=== PATIENT | male | born 1960 | race Caucasian/White ===

== ENCOUNTER 2016-09-14 06:41 | Emergency (ER) ==
[2016-09-14 07:31] LABS: MANUAL DIFF NEEDED? NO
[2016-09-14 07:33] LABS: BASO% 0.6 % (0.0-0.8); EOS# 0.21 X1000 (0.0-0.7); HEMOGLOBIN 12.2 g/dL (14.0-18.0); LYMPH# 1.45 X1000 (1.2-3.4); LYMPH% 27.5 % (20.5-51.1); MCH 35.4 PG (27-31); MCHC 35.9 g/dL (33-37); MCV 98.6 FL (81-99); MONO# 0.48 X1000 (0.11-0.59); MONO% 9.1 % (1.7-9.3); MPV 11.3 FL (7.4-10.4); NEUT% 58.8 % (42.2-75.2); PLT 132 X1000 (130-400); RBC 3.45 XMIL (4.7-6.1)
[2016-09-14 07:55] LABS: AGAP 13; ALBUMIN 3.6 g/dL (3.5-5.0); ALKALINE PHOSPHATASE 102 U/L (32-122); BUN 17 mg/dL (8-22); CHLORIDE 108 mmol/L (98-107); COSMO 290; GOT 15 U/L (10-34); GPT 19 U/L (10-44); POTASSIUM 3.6 mmol/L (3.5-5.1); SODIUM 143 mmol/L (136-145); TCO2 22 mmol/L (25-35); TOTAL BILIRUBIN 0.17 mg/dL (0.20-1.00); TOTAL PROTEIN 6.4 g/dL (6.3-8.3)
[2016-09-14] MEDS ORDERED: ZOFRAN IV ONE (08:16)
[2016-09-14] MEDS ORDERED: TORADOL IV ONE (08:16)
[2016-09-14] MEDS ORDERED: NS 1,000 ML IV ONE (08:16)
[2016-09-14 08:22] LABS: URINE SOURCE CLEAN CATCH
[2016-09-14 08:25] LABS: BILIRUBIN URINE MODERATE (NEGATIVE); BLOOD URINE TRACE (NEGATIVE); COLOR BROWN; GLUCOSE URINE NEGATIVE (NEGATIVE); LEUKOCYTES URINE NEGATIVE (NEGATIVE); NITRITE URINE POSITIVE (NEGATIVE); PH URINE 5.5; PROTEIN URINE 50 mg/dL (NEGATIVE); SP GRAVITY URINE 1.033; TURBIDITY URINE CLEAR (CLEAR); UROBILINOGEN URINE 6 mg/dL (NORMAL)
[2016-09-14 08:27] LABS: URINE MICRO REVIEW NEEDED? YES
[2016-09-14 08:29] LABS: UR EPITHELIAL CELLS <10 /HPF (<10); URINE BACTERIA NEGATIVE /HPF; URINE CULTURE NEEDED? YES; URINE RBC <10 /HPF (<10); URINE WBC <10 /HPF (<10)
[2016-09-14 08:45] LABS: URINE CASTS NONE SEEN; URINE CRYSTALS CA OXALATE PRESENT
[2016-09-14 08:46] LABS: URINE SMALL ROUND CELLS NONE SEEN
--- NOTE | 2016-09-14 09:09 | PROVIDER DOCUMENTATION ---
HPI-General Adult - General Source: patient - History of Present Illness -Gen Adult Nature of Presenting Problems: 56 y/o M presents to ED cc of kidney stone. Pt was seen in [facility] ED at 0100am this morn and dx with kidney stones and UTI. Pt was given antibiotics and pain medication this am. Pt is complaining of pain and nausea/vomiting this am. Location of Pain/Injury: reports: abdomen Pain Radiation: reports: no radiation Quality of Pain: reports: aching Onset/Duration: reports: just prior to arrival Timing: reports: still present Context/Activities at Onset: reports: light activity Modifying Factors: improves with: nothing Associated Symptoms: reports: headaches, nausea, vomiting, other (kidney stone pain). denies: chest pain, fever/chills, shortness of breath Similar Symptoms Previously?: Yes Recently seen or treated by another doctor?: Yes <Cherelle Gar - Last Filed: 09/14/16 09:04> <Juan Miguel Sevilla I - Last Filed: 09/14/16 09:17> - General Chief Complaint: General Adult Stated Complaint: PEEING BLOOD,WEAK,NAUSEA Time Seen by Provider: 09/14/16 08:10 Allergies/Adverse Reactions: Patient Allergies Allergy/AdvReac Type Severity Reaction Status Date / Time tramadol Allergy Unknown Verified 09/14/16 06:49 tramadol HCl * [From Ultram] Allergy Unknown Verified 09/14/16 06:49 Home Medications: Home Medication List Medication Instructions Recorded Confirmed Last Taken Type No Home Medications 09/14/16 09/14/16 Unknown History Review of Systems - Adult - REVIEW OF SYSTEMS - ADULT Constitutional: denies: chills, fever Cardiovascular: denies: chest pain, palpitations Respiratory: denies: cough, shortness of breath Gastrointestinal: reports: abdominal pain, nausea, vomiting. denies: diarrhea Genitourinary: denies: discharge, frequency Musculoskeletal: denies: bone pain, back pain Neurological: reports: headache/migraines. denies: dizziness/vertigo <Cherelle Gar - Last Filed: 09/14/16 09:04> Past History - Adult - PAST MEDICAL HISTORY-ADULT Review of Records: reports: Old Records Reviewed, Nursing Assessment Review Cardiovascular: reports: MA Respiratory: reports: COPD Gastrointestinal: reports: GERD Neurological: reports: CVA, Seizures/Epilepsy - PRIOR SURGERIES/PROCEDURES Surgical/Procedure History: reports: cholecystectomy - IMMUNIZATION STATUS Childhood Immunizations: See Nurse Assessment Flu Vaccine: See Nurse Assessment - SOCIAL HISTORY Smoking: greater than 1 pack/day Provider spent 3-5 mins advising pt. on dangers of tobacco.: Discussed manners to quit use, and f/u contacts for add'l counseling. Substance Use: denies <Cherelle Gar - Last Filed: 09/14/16 09:04> Physical Exam-General - PHYSICAL EXAM-ADULT Initial Vital Signs Reviewed: Yes - CONSTITUTIONAL General Appearance: appears well, alert, no apparent distress - EYES Eyes: PERRL/EOMI, pink conjunctivae - HEAD, EARS, NOSE, MOUTH & THROAT HENMT: normocephalic/atraumatic, moist mucous membranes - NECK Neck: full range of motion - RESPIRATORY Respiratory: chest non-tender, lungs clear, normal breath sounds - CARDIOVASCULAR Cardiovascular: normal peripheral pulses, regular rate, rhythm - GASTROINTESTINAL (ABDOMEN) Abdominal Exam: normal bowel sounds, non tender - MUSCULOSKELETAL Extremity: normal range of motion, non-tender, normal gait - SKIN Integumentary: normal color, normal turgor, warm/dry - NEUROLOGIC Neurologic: grossly normal, no motor/sensory deficits - PSYCHIATRIC Psych/Mental Status: normal mood/affect, normal thought content, normal thought process, oriented x 3 <Cherelle Gar - Last Filed: 09/14/16 09:04> Progress - PLAN OF CARE/RESULTS Progress/Plan/Lab Results: PLAN: GIVE PT FLUIDS, TREAT NAUSEA/ PAIN, URINE TEST, LAB TEST Laboratory Tests 09/14/16 09/14/16 09/14/16 07:00 07:00 07:41 WBC 5.28 RBC 3.45 L Hgb 12.2 L Hct 34.0 L MCV 98.6 MCH 35.4 H MCHC 35.9 RDW Std Deviation 12.4 Plt Count 132 MPV 11.3 H Immature Gran % (Auto) 0.0 Neut % (Auto) 58.8 Lymph % (Auto) 27.5 Bond % (Auto) 9.1 Eos % (Auto) 4.0 Baso % (Auto) 0.6 Immature Gran # (Auto) 0.00 Neut # (Auto) 3.11 Lymph # (Auto) 1.45 Bond # (Auto) 0.48 Eos # (Auto) 0.21 Baso # (Auto) 0.03 Sodium 143 Potassium 3.6 Chloride 108 H Carbon Dioxide 22 L Anion Gap 13 BUN 17 Creatinine 0.9 Estimated GFR/1.73 m2 > 60 BUN/Creatinine Ratio 19 Glucose 154 H Calculated Osmolality 290 Calcium 9.0 Total Bilirubin 0.17 L AST 15 ALT 19 Alkaline Phosphatase 102 Total Protein 6.4 Albumin 3.6 Globulin 2.8 Albumin/Globulin Ratio 1.3 Urine Source CLEAN CATCH Urine Color BROWN Urine Turbidity CLEAR Urine pH 5.5 Ur Specific [place] 1.033 Urine Protein 50 A Ur Glucose (Stick) NEGATIVE Ur Ketones (Stick) NEGATIVE Urine Blood TRACE A Urine Nitrite POSITIVE A Urine Bilirubin MODERATE A Urobilinogen Dipstick 6 A Urine Leukocytes NEGATIVE Urine WBC (Auto) <10 Urine RBC (Auto) <10 U Epithel Cells (Auto) <10 Urine Bacteria (Auto) NEGATIVE Urine Crystals CA OXALATE PRESENT Small Round Cells NONE SEEN Urine Casts NONE SEEN Urine Yeast-like Cells NONE SEEN Orders Category Date Time Status CBC WITH ELECTRONIC DIFF [HEME] Stat Lab 09/14/16 07:00 Completed CMP [COMPREHENSIVE METABOLIC PANEL] [CHEM] Stat Lab 09/14/16 07:00 Completed URINALYSIS W/POSS RFLX CULT [URINALYSIS] Stat Lab 09/14/16 07:41 Completed URINE CULTURE [RM] Routine Lab 09/14/16 08:31 Received URINE MANUAL MICROSCOPIC [URINALYSIS] Stat Lab 09/14/16 07:41 Completed 0.9% Sodium Chloride Inj [Ns] 1,000 ml Med 09/14/16 08:16 Active IV 999 mls/hr Ketorolac [Toradol] Med 09/14/16 08:16 Discontinued 30 mg IV NOW ONE Ondansetron [Zofran] Med 09/14/16 08:16 Discontinued 4 mg IV NOW ONE Vital Signs - 24 hr 09/14/16 06:44 Temperature 97.3 F L Pulse Rate 75 Respiratory 17 Rate Blood Pressure 102/57 O2 Sat by Pulse 99 Oximetry <Cherelle Gar - Last Filed: 09/14/16 09:04> - PLAN OF CARE/RESULTS Progress/Plan/Lab Results: Hemodynamically stable. will discharge home <Juan Miguel Sevilla I - Last Filed: 09/14/16 09:17> Departure <Cherelle Gar - Last Filed: 09/14/16 09:04> - Departure Time of Disposition Order: 09:14 Certified Medical Emergency: Emergent <Juan Miguel Sevilla I - Last Filed: 09/14/16 09:17> - Departure DIAGNOSIS: Renal colic on right side, UTI (urinary tract infection), bacterial, Kidney calculus Disposition: HOME 01 Condition: Stable Additional Instructions: Has presriptions from hospital visit earlier this am in [facility]. Attestation - Scribe Verification/Attestation Scribe:: Cherelle Gar Acting as Scribe for:: Juan Miguel Sevilla Scribe documention review:: This chart was documented by a scribe and accurately reflects the service the provider performed and the decisions made by the provider. <Cherelle Gar - Last Filed: 09/14/16 09:04> - Scribe Verification/Attestation Acting as Scribe for:: Juan Miguel Sevilla - Physician/ FARZAD Attestation Patient care was provided by Advanced Practice Provider:: Yes Advanced Practice Provider documentation review:: The Mid-level provider documentation, treatment plan and medical decision making was reviewed by the physician who agrees with all treatment and medical decision making by the MLP. The physician spent face to face time with patient:: Yes Advanced Practice Provider documentation review:: The physician spent face to face time with this patient and agrees with all MLP documentation, treatment, and medical decision making by the MLP. See provider notes for further information. <Juan Miguel Sevilla I - Last Filed: 09/14/16 09:17> Physician Attestation - Physician Attestation I, the provider, attest to the following statement:: Juan Miguel Sevilla Physician documentation Attestation:: This documentation recorded by the scribe accurately reflects the service I personally performed and the decisions made by me. <Cherelle Gar - Last Filed: 09/14/16 09:04> - Physician Attestation I, the provider, attest to the following statement:: Juan Miguel Sevilla Physician documentation Attestation:: This documentation recorded by the scribe accurately reflects the service I personally performed and the decisions made by me. <Juan Miguel Sevilla I - Last Filed: 09/14/16 09:17>
[2016-09-14 10:07] VITALS: BP 125/75
== END 2016-09-14 10:06 | disposition home or self-care (01) ==
LOC: ED 06:41
DX: N20.0 Calculus of kidney (principal); N39.0 Urinary tract infection, site not specified; B96.89 Other specified bacterial agents as the cause of diseases classified elsewhere; R10.9 Unspecified abdominal pain; R11.2 Nausea with vomiting, unspecified; R51 Headache; R31.9 Hematuria, unspecified; R53.1 Weakness; I25.2 Old myocardial infarction; J44.9 Chronic obstructive pulmonary disease, unspecified; F17.210 Nicotine dependence, cigarettes, uncomplicated; Z71.6 Tobacco abuse counseling; Z86.73 Personal history of transient ischemic attack (TIA), and cerebral infarction without residual deficits
CPT/HCPCS: 36415; 80053; 81001; 85025; 87088; 96361; 96374; 96375; J1885; J2405; J7030